=== PATIENT | male | born 1970 | race Caucasian/White ===

== ENCOUNTER 2018-01-25 12:47 | Emergency (ER) | payer MEDICAID, OTHER ==
[2018-01-25 12:57] VITALS: BP 152/93
--- NOTE | 2018-01-25 13:34 | EDPHY ---
H & P Stated Complaint: left lower leg wound x 1 month from fall off ladder. Time Seen by Provider: 01/25/18 12:49 HPI/ROS: Chief Complaint: Leg wound HPI: 47-year-old male presenting with a infected wound on his left leg. Patient states that he fell off a 2 step ladder 1 month ago scraping his leg. He had a scabbed up lesion since then. Initially it swelled up but then improved. The scab finally came off today and he had a lot of pus come out of the wound. It is continues to be very sore. Denies any fevers or chills. No streaking up his leg. No other complaints. ROS: 10 systems were reviewed and were negative except those elements noted in the HPI. PMH: Denies Social History: Positive smoking, occasional alcohol Family History: [non-contributory] Physical Exam: General: Awake, alert, no acute distress Left leg: Patient has a ulcerative lesion on his left anterior hassan approximately 8 mm x 6 mm. There is a deep pocket of purulent material underneath. There is a area of dusky erythema approximately 7 cm in diameter around the wound. There is no lymphangitic streaking. He is neurovascularly intact distally. Skin: No rash - Personal History Current Tetanus Diphtheria and Acellular Pertussis (TDAP): Yes - Medical/Surgical History Hx Asthma: No Hx Chronic Respiratory Disease: No Hx Diabetes: No Hx Cardiac Disease: No Hx Renal Disease: No Other PMH: hand surgeries - Social History Smoking Status: Heavy smoker Constitutional: Initial Vital Signs Temperature (C) 36.6 C 01/25/18 12:53 Heart Rate 84 01/25/18 12:53 Respiratory Rate 16 01/25/18 12:53 Blood Pressure 152/93 H 01/25/18 12:53 O2 Sat (%) 97 01/25/18 12:53 O2 Delivery Mode Room Air Allergies/Adverse Reactions: No Known Allergies Allergy (Unverified 01/25/18 12:56) Home Medications: Medication Instructions Recorded Cephalexin [Keflex (*)] 500 mg PO Q6H #40 cap 01/25/18 Hydrocodone/Acetaminophen 1 - 2 each PO Q4-6PRN PRN #10 01/25/18 [Hydrocodon-Acetaminophen 5-325] tablet Sulfamethox/Tmp 800/160 mg 1 tab PO BID #20 tab 01/25/18 [Bactrim Ds] Medical Decision Making - Diagnostics Imaging Results: Imaging Impressions Tibia/Fibula X-Ray 01/25/18 13:03 Impression: No evidence for osteomyelitis. ED Course/Re-evaluation: Wound has been irrigated and packed by me. He has scant amount of erythema but given the duration of when the extent of the purulence and the presence of erythema suggesting cellulitis will start him on antibiotics. He will return for packing removal in 2 days. Departure - Departure Disposition: Home, Routine, Self-Care Clinical Impression: Infected wound Condition: Good Instructions: Wound Infection (ED) Additional Instructions: Please take your full course of antibiotics. [facility] for packing removal and re-evaluation. Return to the emergency department for increasing redness, pain, fevers, chills , or any other concerns. Referrals: [facility],. [Clinic] - As per Instructions Prescriptions: Cephalexin [Keflex (*)] 500 mg PO Q6H #40 cap Hydrocodone/Acetaminophen [Hydrocodon-Acetaminophen 5-325] 1 - 2 each PO Q4- 6PRN PRN #10 tablet PRN Reason: Pain, Severe Sulfamethox/Tmp 800/160 mg [Bactrim Ds] 1 tab PO BID #20 tab
[2018-01-25] MEDS ORDERED: TDAP ADULT 0.5 ML INJ (BOOSTRIX) IM ONE (14:05)
== END 2018-01-25 14:15 | disposition home or self-care (01) ==
LOC: CED 12:47
DX: S81.802A Unspecified open wound, left lower leg, initial encounter (principal); L08.9 Local infection of the skin and subcutaneous tissue, unspecified; F17.200 Nicotine dependence, unspecified, uncomplicated; Z23 Encounter for immunization; W11.XXXA Fall on and from ladder, initial encounter; Y92.9 Unspecified place or not applicable; Y93.9 Activity, unspecified; Y99.9 Unspecified external cause status
CPT/HCPCS: 73590-PO

== ENCOUNTER 2018-01-27 14:13 | Emergency (ER) | payer OTHER ==
[2018-01-27 14:27] VITALS: BP 124/88
--- NOTE | 2018-01-27 14:50 | EDPHY ---
H & P Time Seen by Provider: 01/27/18 14:39 HPI/ROS: This patient returns for a wound check 2 days after packing was placed for a wound to the left leg that occurred 1 month prior to arrival at work was consistent with mild abscess that was I indeed by Dr. Llanes. The wound was packed in patient was started on Keflex for surrounding cellulitis. He reports significant improvement in terms of less pain and redness since treatment. He returns for packing removal today ROS: Constitutional: No fevers or chills Integumentary: No other skin complaints GI: No nausea vomiting 5 point review of symptoms is performed and otherwise negative with exception of pertinent positives and negatives listed in HPI and ROS Past Medical/Surgical History: Otherwise healthy Smoking Status: Heavy smoker Physical Exam: Physical Exam Vital signs are normal. General: No acute distress HEENT: Atraumatic. Eyes: Pupils equal and react to light. Extraocular motions are intact. Lungs: No respiratory distress. Cardiac: Brisk capillary refill is intact throughout. Pulses are 2+ and symmetric in the affected extremity. Skin: No rash or pallor. There is a 1 cm number by 1.5 cm open wound to the left pretibial region with packing placed an very minimal erythema and at this time surrounding the wound with no fluctuance. Neuro: Alert and oriented x3 with no sensorimotor deficits. Constitutional: Initial Vital Signs Temperature (C) 36.8 C 01/27/18 14:24 Heart Rate 88 01/27/18 14:24 Respiratory Rate 16 01/27/18 14:24 Blood Pressure 124/88 H 01/27/18 14:24 O2 Sat (%) 95 01/27/18 14:24 O2 Delivery Mode Room Air Allergies/Adverse Reactions: No Known Allergies Allergy (Verified 01/27/18 14:25) Home Medications: Medication Instructions Recorded Cephalexin [Keflex (*)] 500 mg PO Q6H #40 cap 01/25/18 Hydrocodone/Acetaminophen 1 - 2 each PO Q4-6PRN PRN #10 01/25/18 [Hydrocodon-Acetaminophen 5-325] tablet Sulfamethox/Tmp 800/160 mg 1 tab PO BID #20 tab 01/25/18 [Bactrim Ds] MDM/Departure - MDM ED Course/Re-evaluation: I removed the packing without difficulty. Patient tolerated this well. Wound is gently clean to and irrigated with saline. A new dressing is placed. Patient will continue his Keflex and complete the course with 1 more follow up with work comp for final recheck in 5 days. He understands wound care treatment plan and need to return emergency department if he should develop worsening symptoms despite treatment plan - Depart Disposition: Home, Routine, Self-Care Clinical Impression: Wound check, abscess Condition: Good Instructions: Acute Wounds (ED) Additional Instructions: Diagnosis: Wound check Plan: Clean wound daily with warm soapy water. Continue incomplete the Keflex antibiotic. Cover the wound while at work. Remove dressing for a part of the day after work to get some air to the wound daily. Final follow up with work comp clinic in 5 days for recheck. Return emergency department for any worsening despite treatment plan Referrals: NONE *PRIMARY CARE P,. [Primary Care Provider] - As per Instructions
== END 2018-01-27 15:07 | disposition home or self-care (01) ==
LOC: CED 14:13
DX: Z48.00 Encounter for change or removal of nonsurgical wound dressing (principal); S81.802D Unspecified open wound, left lower leg, subsequent encounter; F17.200 Nicotine dependence, unspecified, uncomplicated